=== PATIENT | female | born 1990 | race African-American/Black ===

== ENCOUNTER 2018-07-18 23:39 | Emergency (ER) | payer OTHER ==
[2018-07-19 00:03] VITALS: BP 139/82; PULSE 72; TEMP 98.8; BMI 28.2
[2018-07-19] MEDS ORDERED: CEPHALEXIN MONOHYDRATE 500 MG CAPSULE (UD) PO ONE (01:25)
[2018-07-19] MEDS ORDERED: HEMOQUE TEST 1 EACH EACH ONE (01:30)
--- NOTE | 2018-07-19 01:30 | PDOC ---
History of Present Illness - General History Source: Patient Exam Limitations: No Limitations - History of Present Illness Initial Comments: 07/19/18 02:36 The patient is a 28 year old female, with no significant past medical history, who presents to the emergency department with, lumps to the neck and head with a rash on the scalp. As per patient, she went to urgent care to get her symptoms checked and they stated they were cysts. She reports her symptoms did not subside and she developed an itchy scab on the back of the right side of her scalp. She reports an associated headache on the right side of her head. She denies recent fevers, chills, or dizziness. She denies recent nausea, vomit , diarrhea or constipation. She denies recent dysuria, frequency, urgency or hematuria. She denies recent chest pain or shortness of breath. Allergies: NKA Past surgical history: None reported. Social history: Nonsmoker. Denies EtOH use and recreational drug use. <Layla Card - Last Filed: 07/19/18 02:36> <Moni Murphy - Last Filed: 07/19/18 21:58> - General Chief Complaint: Headache Stated Complaint: HEADACHE BLURRY VISION Time Seen by Provider: 07/19/18 01:13 Past History <Layla Card - Last Filed: 07/19/18 02:36> - Past Medical History COPD: No - Suicide/Smoking/Psychosocial Hx Smoking History: Never smoked <Moni Murphy - Last Filed: 07/19/18 21:58> - Past Medical History Allergies/Adverse Reactions: Allergies Allergy/AdvReac Type Severity Reaction Status Date / Time No Known Allergies Allergy Verified 07/19/18 00:03 Home Medications: Ambulatory Orders Cephalexin [Keflex] 500 mg PO QID #28 capsule 07/19/18 Ibuprofen [Motrin -] 600 mg PO TID #30 tablet 07/19/18 Mupirocin Ointment [Bactroban 2% Ointment -] 1 applic TP TID 7 Days #15 applic 07/19/18 Review of Systems - Review of Systems Able to Perform ROS?: Yes Comments:: 07/19/18 02:36 GENERAL/CONSTITUTIONAL: No fever or chills. No weakness. +HEAD, EYES, EARS, NOSE AND THROAT: Posterior neck lymphadenopathy. Itchy scab on the scalp. No change in vision. No ear pain or discharge. No sore throat. CARDIOVASCULAR: No chest pain or shortness of breath. RESPIRATORY: No cough, wheezing, or hemoptysis. GASTROINTESTINAL: No nausea, vomiting, diarrhea or constipation. GENITOURINARY: No dysuria, frequency, or change in urination. MUSCULOSKELETAL: No joint or muscle swelling or pain. No neck or back pain. SKIN: No rash NEUROLOGIC: No headache, vertigo, loss of consciousness, or change in strength/ sensation. ENDOCRINE: No increased thirst. No abnormal weight change. HEMATOLOGIC/LYMPHATIC: No anemia, easy bleeding, or history of blood clots. ALLERGIC/IMMUNOLOGIC: No hives or skin allergy. All Other Systems: Reviewed and Negative <Layla Card - Last Filed: 07/19/18 02:36> *Physical Exam - Vital Signs Last Vital Signs Temp Pulse Resp BP Pulse Ox 98.8 F 72 18 139/82 100 07/19/18 00:01 07/19/18 00:01 07/19/18 00:01 07/19/18 00:01 07/19/18 00:01 - Physical Exam Comments: 07/19/18 02:38 GENERAL: Awake, alert, and fully oriented, in no acute distress HEAD: Right occipital small 1cm diameter circular impetital like cellulitis. 2 swollen 1cm lymph nodes on the posterior neck. EYES: PERRLA, EOMI, sclera anicteric, conjunctiva clear ENT: Auricles normal inspection, hearing grossly normal, nares patent, oropharynx clear without exudates. Moist mucosa NECK: Normal ROM, supple, no lymphadenopathy, JVD, or masses LUNGS: Breath sounds equal, clear to auscultation bilaterally. No wheezes, and no crackles HEART: Regular rate and rhythm, normal S1 and S2, no murmurs, rubs or gallops ABDOMEN: Soft, nontender, normoactive bowel sounds. No guarding, no rebound. No masses EXTREMITIES: Normal range of motion, no edema. No clubbing or cyanosis. No cords, erythema, or tenderness NEUROLOGICAL: Cranial nerves II through XII grossly intact. Normal speech, normal gait SKIN: Warm, Dry, normal turgor, no rashes or lesions noted. <Layla Card - Last Filed: 07/19/18 02:36> - Vital Signs Last Vital Signs Temp Pulse Resp BP Pulse Ox 98.8 F 72 18 139/82 100 07/19/18 00:01 07/19/18 00:01 07/19/18 00:01 07/19/18 00:01 07/19/18 00:01 <Moni Murphy - Last Filed: 07/19/18 21:58> ED Treatment Course - ADDITIONAL ORDERS Additional order review: Laboratory Results 07/19/18 01:38 POC Glucometer [id number] 07/19/18 01:38 POC Glucometer [id number] - Medications Given in the ED: ED Medications Discontinued Medications Generic Name Dose Route Start Last Admin Trade Name Garry PRN Reason Stop Dose Admin Cephalexin HCl 500 mg 07/19/18 01:25 07/19/18 01:37 Keflex - PO 07/19/18 01:26 500 mg ONCE ONE Administration Oxycodone/Acetaminophen 2 combo 07/19/18 01:14 07/19/18 01:37 Percocet 5/325 - PO 07/19/18 01:15 2 combo ONCE ONE Administration <Layla Card - Last Filed: 07/19/18 02:36> Medical Decision Making - Medical Decision Making 07/19/18 21:57 Pt comes with a small scalp infection/cellulitis and enlarged lymp nodes in the right nape fo her neck inferior to the infected area. <Moni Murphy - Last Filed: 07/19/18 21:58> *DC/Admit/Observation/Transfer - Attestations Scribe Attestion: 07/19/18 02:41 Documentation prepared by Layla Card, acting as medical grade shoemaker for Moni Murphy MD. <Layla Card - Last Filed: 07/19/18 02:36> - Discharge Dispostion Decision to Admit order: No <Moni Murphy - Last Filed: 07/19/18 21:58> Diagnosis at time of Disposition: Cellulitis of head or scalp - Discharge Dispostion Disposition: HOME Condition at time of disposition: Stable - Prescriptions Prescriptions: Cephalexin [Keflex] 500 mg PO QID #28 capsule Ibuprofen [Motrin -] 600 mg PO TID #30 tablet Mupirocin Ointment [Bactroban 2% Ointment -] 1 applic TP TID 7 Days #15 applic - Referrals Referrals: Jillian Willoughby MD [Staff Physician] - - Patient Instructions Printed Discharge Instructions: DI for Cellulitis -- Adult, DI for Impetigo - Post Discharge Activity Forms/Work/School Notes: Back to Work
[2018-07-19] MEDS ORDERED: CEPHALEXIN MONOHYDRATE 500 MG CAPSULE (UD) ONE (01:37)
== END 2018-07-19 01:43 | disposition home or self-care (01) ==
LOC: JER 23:39
DX: L03.811 Cellulitis of head [any part, except face] (principal)
CPT/HCPCS: 82962; 99281-25

== ENCOUNTER 2020-05-27 19:13 | Emergency (ER) | payer SELFPAY ==
[2020-05-27 19:23] VITALS: BP 118/74; PULSE 90; TEMP 98.5; BMI 28.2
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
[2020-05-27] MEDS ORDERED: LIDOCAINE 5% TOPICAL PATCH TP ONE (19:55)
[2020-05-27] MEDS ORDERED: LIDOCAINE 5% TOPICAL PATCH ONE (20:12)
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
[2020-05-27] MEDS ORDERED: LIDOCAINE PATCH REMOVAL MC SCH (22:00)
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
== END 2020-05-27 20:54 | disposition home or self-care (01) ==
LOC: JER 19:13
DX: R20.2 Paresthesia of skin (principal)
CPT/HCPCS: 99283-25